=== PATIENT | female | born 1950 | race Caucasian/White ===

== ENCOUNTER 2024-12-04 14:23 | Emergency (ER) | payer OTHER ==
[~2024-12-04] VITALS: Ht 154.9 cm; Wt 65.0 kg
[2024-12-04 15:02] VITALS: O2SAT 98
[2024-12-04] MEDS ORDERED: IBUP-2028 MT (18:13)
[2024-12-04] MEDS ORDERED: CAPS42.514 TP (18:18)
[2024-12-04 18:42] VITALS: BP 157/66; PULSE 79; RESP 18; TEMP 37.1; O2SAT 98
== END 2024-12-04 18:42 | disposition home or self-care (01) ==
LOC: ER 14:23
DX: M79.645 Pain in left finger(s) (principal); M19.90 Unspecified osteoarthritis, unspecified site; E11.9 Type 2 diabetes mellitus without complications; I10 Essential (primary) hypertension; Z88.5 Allergy status to narcotic agent; Z79.899 Other long term (current) drug therapy; Z98.890 Other specified postprocedural states
CPT/HCPCS: 29130; 99283